=== PATIENT | female | born 1980 | race Caucasian/White ===

== ENCOUNTER → 2020-09-10 | Outpatient (CLI) | payer BC ==
[~2020-09-10] MED LIST: ATOR40TA70 PO; DILT90TA2 PO; METF-416 PO; VITAMIN D PO
== END | disposition home or self-care (01) ==
LOC: LAB 06:50
PROVIDERS: ATTEND Obstetrics & Gynecology
DX: Z01.812 Encounter for preprocedural laboratory examination (principal); Z20.828 Contact with and (suspected) exposure to other viral communicable diseases
CPT/HCPCS: 87426

== ENCOUNTER → 2020-09-10 | Day surgery (SDC) | payer BC ==
[~2020-09-10] VITALS: Ht 157.5 cm; Wt 83.9 kg
[~2020-09-10] MED LIST changes: +EPHEDRINE SULFATE 50MG/ML VIAL ONE; +FENTANYL CITRATE/PF 50MCG/ML 2ML VIAL ONE; +HYDROMORPHONE HCL/PF 2MG/ML CPJ IV PRN; +LIDOCAINE HCL/PF 1% 10 MG/ML 5ML VIAL ONE; +METOCLOPRAMIDE HCL 10MG/2ML VIAL ONE; +MIDAZOLAM HCL 2 MG/2 ML VIAL ONE; +ONDANSETRON HCL 4MG/2ML INJ ONE; +PROPOFOL 200MG/20ML VIAL IV ONE; +ROCURONIUM BROMIDE 10MG/ML VIAL 5ML IV ONE; +SODIUM CHLORIDE 0.9% 1,000 ML IV SCH
[2020-09-10 08:34] LABS: UCG SCREEN NEGATIVE
[2020-09-10 08:39] LABS: HEMATOCRIT 24.9 % (36.0-48.0); HEMOGLOBIN 7.2 g/dL (12.0-16.0)
[2020-09-10 11:44] VITALS: BP 150/76
== END | disposition home or self-care (01) ==
LOC: OR 07:55
PROVIDERS: ATTEND Obstetrics & Gynecology
DX: N93.8 Other specified abnormal uterine and vaginal bleeding (principal); D25.9 Leiomyoma of uterus, unspecified; E11.9 Type 2 diabetes mellitus without complications; E78.00 Pure hypercholesterolemia, unspecified; Z87.891 Personal history of nicotine dependence; Z79.899 Other long term (current) drug therapy; Z79.84 Long term (current) use of oral hypoglycemic drugs; Z98.890 Other specified postprocedural states; Z20.828 Contact with and (suspected) exposure to other viral communicable diseases
CPT/HCPCS: 36415; 58558; 81025; 82962; 85014; 85018; 86850; 86900; 86901; 86920; 88305; J1170; J2250; J2405; J2704; J2765; J3010; J3490

== ENCOUNTER → 2020-11-15 | Day surgery (SDC) | payer BC ==
[~2020-11-15] VITALS: Ht 157.5 cm; Wt 88.9 kg
[~2020-11-15] MED LIST changes: -EPHEDRINE SULFATE 50MG/ML VIAL ONE; -FENTANYL CITRATE/PF 50MCG/ML 2ML VIAL ONE; +GLIP10TA10 PO; +IRON-16 PO; +LABETALOL 5MG/ML SYR 20 MG/4 ML SYRINGE IV PRN; -LIDOCAINE HCL/PF 1% 10 MG/ML 5ML VIAL ONE; +MEPERIDINE HCL/PF 25MG/ML CPJ IV PRN; -METOCLOPRAMIDE HCL 10MG/2ML VIAL ONE; -MIDAZOLAM HCL 2 MG/2 ML VIAL ONE; +ONDANSETRON HCL 4MG/2ML INJ IV PRN; -ONDANSETRON HCL 4MG/2ML INJ ONE; -PROPOFOL 200MG/20ML VIAL IV ONE; -ROCURONIUM BROMIDE 10MG/ML VIAL 5ML IV ONE
[2020-11-15 09:22] LABS: UCG SCREEN NEGATIVE
[2020-11-15 09:22] LABS: BASOPHILS % 0.5 % (0.0-2.0); EOSINOPHILS % 4.1 % (0.0-5.0); HEMATOCRIT. 29.4 % (36.0-48.0); HEMOGLOBIN. 8.9 g/dL (12.0-16.0); LYMPHOCYTES % 27.1 % (20.0-50.0); MEAN CORPUSCULAR HEMOGLOBIN 19.9 pg (28.0-32.0); MEAN CORPUSCULAR VOLUME 65.7 fL (81.0-99.0); MEAN PLATELET VOLUME 8.9 fl (7.4-10.4); MONOCYTES % 5.8 % (2.0-8.0); NEUTROPHILS % 62.5 % (40.0-76.0); PLATELET 391 x1000/uL (130-400); RED BLOOD CELL COUNT 4.48 mill/uL (4.2-5.4); RED CELL DISTRIBUTION WIDTH 20.8 % (11.6-14.6)
[2020-11-15 09:27] LABS: CHLORIDE 107 mEq/L (98-107)
[2020-11-15 09:33] LABS: PARTIAL THROMBOPLASTIN TIME 26.4 sec (23.4-31.0); PROTHROMBIN TIME 10.7 sec (9.6-11.0)
[2020-11-15 10:07] LABS: PLATELET ESTIMATE NORMAL
== END | disposition home or self-care (01) ==
LOC: OR 08:10
PROVIDERS: ATTEND Obstetrics & Gynecology
DX: D25.9 Leiomyoma of uterus, unspecified (principal); N92.4 Excessive bleeding in the premenopausal period; Z79.84 Long term (current) use of oral hypoglycemic drugs; Z79.899 Other long term (current) drug therapy; Z98.890 Other specified postprocedural states
CPT/HCPCS: 36415; 80053; 81025; 82962; 85025; 86850; 86900; 88305; 93005

== ENCOUNTER → 2020-11-15 | Outpatient (CLI) | payer BC ==
[~2020-11-15] MED LIST changes: +DEXAMETHASONE 4MG/ML 1ML VIAL ONE; +FENTANYL CITRATE/PF 50MCG/ML 2ML VIAL ONE; +GLYCOPYRROLATE 0.2 MG/ML 2ML VIAL ONE; -HYDROMORPHONE HCL/PF 2MG/ML CPJ IV PRN; -LABETALOL 5MG/ML SYR 20 MG/4 ML SYRINGE IV PRN; -MEPERIDINE HCL/PF 25MG/ML CPJ IV PRN; +MIDAZOLAM HCL 2 MG/2 ML VIAL ONE; +NEOSTIGMINE METHYLSULFATE 1MG/ML 10 ML VIAL ONE; -ONDANSETRON HCL 4MG/2ML INJ IV PRN; +ONDANSETRON HCL 4MG/2ML INJ ONE; +PROPOFOL 200MG/20ML VIAL IV ONE; +ROCURONIUM BROMIDE 10MG/ML VIAL 5ML IV ONE; -SODIUM CHLORIDE 0.9% 1,000 ML IV SCH
== END | disposition home or self-care (01) ==
LOC: LAB 07:38
PROVIDERS: ATTEND Obstetrics & Gynecology
DX: Z11.52 Encounter for screening for COVID-19 (principal); Z20.822 Contact with and (suspected) exposure to COVID-19; Z79.84 Long term (current) use of oral hypoglycemic drugs; Z79.899 Other long term (current) drug therapy
CPT/HCPCS: 87426; J1100; J2250; J2405; J2704; J2710; J3010; J3490

== ENCOUNTER 2021-04-29 07:03 | Inpatient (IN) | payer BC ==
[~2021-04-29] VITALS: Ht 157.5 cm; Wt 84.4 kg
[~2021-04-29 07:03] MED LIST changes: -DEXAMETHASONE 4MG/ML 1ML VIAL ONE; -FENTANYL CITRATE/PF 50MCG/ML 2ML VIAL ONE; -GLYCOPYRROLATE 0.2 MG/ML 2ML VIAL ONE; -MIDAZOLAM HCL 2 MG/2 ML VIAL ONE; -NEOSTIGMINE METHYLSULFATE 1MG/ML 10 ML VIAL ONE; -ONDANSETRON HCL 4MG/2ML INJ ONE; -PROPOFOL 200MG/20ML VIAL IV ONE; -ROCURONIUM BROMIDE 10MG/ML VIAL 5ML IV ONE
[2021-04-29] MEDS ORDERED: VASOPRESSIN 20 UNIT/ML 1ML ONE (07:23)
[2021-04-29] MEDS ORDERED: DULA1.5P SQ (08:03)
[2021-04-29 08:10] LABS: BASOPHILS % 0.6 % (0.0-2.0); EOSINOPHILS % 4.7 % (0.0-5.0); HEMATOCRIT. 29.6 % (36.0-48.0); HEMOGLOBIN. 9.6 g/dL (12.0-16.0); LYMPHOCYTES % 28.8 % (20.0-50.0); MEAN CORPUSCULAR HEMOGLOBIN 24.4 pg (28.0-32.0); MEAN CORPUSCULAR VOLUME 75.7 fL (81.0-99.0); MEAN PLATELET VOLUME 9.2 fl (7.4-10.4); MONOCYTES % 6.1 % (2.0-8.0); NEUTROPHILS % 59.8 % (40.0-76.0); PLATELET 284 x1000/uL (130-400); RED BLOOD CELL COUNT 3.92 mill/uL (4.2-5.4); RED CELL DISTRIBUTION WIDTH 15.3 % (11.6-14.6)
[2021-04-29] MEDS ORDERED: SODIUM CHLORIDE 0.9% 1,000 ML IV ONE (08:15)
[2021-04-29 08:16] LABS: CHLORIDE 109 mEq/L (98-107)
[2021-04-29 08:19] LABS: INR 0.9; PROTHROMBIN TIME 10.2 sec (9.6-11.0)
[2021-04-29 08:28] LABS: CLARITY URINE CLOUDY (CLEAR); COLOR URINE RED (YELLOW); KETONES URINE NEGATIVE (NEGATIVE); LEUKOCYTE ESTERASE URINE 2+ (NEGATIVE); NITRITE URINE NEGATIVE (NEGATIVE); OCCULT BLOOD URINE 3+ (NEGATIVE); PH URINE 5.5 (4.5-8.0); PROTEIN URINE 1+ (NEGATIVE); SPECIFIC GRAVITY URINE 1.026 (1.005-1.030); UROBILINOGEN URINE 0.2 E.U./dL (0.2-1.0)
[2021-04-29 08:43] LABS: UCG SCREEN NEGATIVE
[2021-04-29] MEDS ORDERED: ROCURONIUM BROMIDE 10MG/ML VIAL 5ML IV ONE (09:46)
[2021-04-29] MEDS ORDERED: FENTANYL CITRATE/PF 50MCG/ML 2ML VIAL ONE (09:46)
[2021-04-29] MEDS ORDERED: MIDAZOLAM HCL 2 MG/2 ML VIAL ONE (09:46)
[2021-04-29] MEDS ORDERED: NEOSTIGMINE METHYLSULFATE 1MG/ML 10 ML VIAL ONE (09:46)
[2021-04-29] MEDS ORDERED: GLYCOPYRROLATE 0.2 MG/ML 2ML VIAL ONE ×2 (09:46→12:58)
[2021-04-29] MEDS ORDERED: PROPOFOL 200MG/20ML VIAL IV ONE (09:46)
[2021-04-29] MEDS ORDERED: ONDANSETRON HCL 4MG/2ML INJ ONE (09:48)
[2021-04-29] MEDS ORDERED: DEXAMETHASONE 4MG/ML 1ML VIAL ONE (09:48)
[2021-04-29] MEDS ORDERED: HYDROMORPHONE HCL/PF 2MG/ML (OR) ONE (10:26)
[2021-04-29] MEDS ORDERED: ONDANSETRON HCL 4MG/2ML INJ IV PRN ×2 (10:45→13:15)
[2021-04-29] MEDS ORDERED: LABETALOL 5MG/ML SYR 20 MG/4 ML SYRINGE IV PRN (10:45)
[2021-04-29] MEDS: HYDROMORPHONE HCL/PF 2MG/ML CPJ IV PRN ×5 (13:10→17:32)
[2021-04-29] MEDS: MEPERIDINE HCL/PF 25MG/ML CPJ IV PRN ×2 (13:33→15:18)
[2021-04-29 20:00] VITALS: BP_SYST 118; BP_SYST 127; BP_DIAS 54; BP_DIAS 56
[2021-04-29] MEDS: CEFAZOLIN 1000MG PREMIX 50 ML IV SCH (23:19)
[2021-04-29] MEDS ORDERED: HYDROCODONE/ACETAMINOPHEN 5/325MG TABLET PO PRN (23:45)
[2021-04-30] VITALS: BP 118/57
[2021-04-30] MEDS: IBUPROFEN 800MG TABLET PO PRN ×3 (03:53→20:28)
[2021-04-30 04:00] VITALS: BP 100/51
[2021-04-30] MEDS: CEFAZOLIN 1000MG PREMIX 50 ML IV SCH ×2 (06:08→13:50)
[2021-04-30 06:30] LABS: BASOPHILS % 0.1 % (0.0-2.0); LYMPHOCYTES % 16.1 % (20.0-50.0); MEAN CORPUSCULAR HEMOGLOBIN 24.2 pg (28.0-32.0); MEAN CORPUSCULAR VOLUME 75.6 fL (81.0-99.0); MEAN PLATELET VOLUME 9.4 fl (7.4-10.4); MONOCYTES % 7.1 % (2.0-8.0); NEUTROPHILS % 76.7 % (40.0-76.0); PLATELET 263 x1000/uL (130-400); RED BLOOD CELL COUNT 3.71 mill/uL (4.2-5.4); RED CELL DISTRIBUTION WIDTH 15.5 % (11.6-14.6)
[2021-04-30 08:00] VITALS: BP 109/52
[2021-04-30] MEDS: ACETAMINOPHEN WITH CODEINE 300/30MG TABLET PO PRN (11:04)
[2021-04-30 12:00] VITALS: BP_SYST 105; BP_SYST 119; BP_DIAS 55; BP_DIAS 57
[2021-04-30 20:00] VITALS: BP 118/56
[2021-05-01] VITALS: BP 115/54
[2021-05-01] MEDS: ACETAMINOPHEN WITH CODEINE 300/30MG TABLET PO PRN ×3 (00:24→21:37)
[2021-05-01] MEDS: IBUPROFEN 800MG TABLET PO PRN ×2 (03:30→14:03)
[2021-05-01 04:00] VITALS: BP 110/46
[2021-05-01 08:00] VITALS: BP 106/52
[2021-05-01 12:00] VITALS: BP 113/53
[2021-05-01 20:00] VITALS: BP 113/53
[2021-05-02] VITALS: BP 119/53
[2021-05-02 04:00] VITALS: BP 115/54
[2021-05-02] MEDS: IBUPROFEN 800MG TABLET PO PRN (04:09)
[2021-05-02] MEDS: ACETAMINOPHEN WITH CODEINE 300/30MG TABLET PO PRN (09:59)
[2021-05-02] MEDS ORDERED: T3 PO (10:34)
[2021-05-02 12:11] VITALS: BP 117/54
== END 2021-05-02 12:40 | disposition home or self-care (01) | DRG 742 ==
LOC: OR 07:03 → 6EST 18:55
PROVIDERS: ADMIT Obstetrics & Gynecology; ATTEND Obstetrics & Gynecology
PROC: 0UT90ZZ Resection of Uterus, Open Approach (ICD-10-PCS; principal; 2021-04-29)
DX: N85.2 Hypertrophy of uterus (principal); D62 Acute posthemorrhagic anemia; D21.9 Benign neoplasm of connective and other soft tissue, unspecified; N85.01 Benign endometrial hyperplasia; Z79.84 Long term (current) use of oral hypoglycemic drugs
CPT/HCPCS: 36415; 80053; 81003; 81025; 82962; 85025; 86850; 86900; 86920; 88307; J0690; J1100; J1170; J2175; J2250; J2405; J2704; J2710; J3010; J3490